=== PATIENT | female | born 2000 | race Caucasian/White ===

== ENCOUNTER 2019-08-27 15:50 | Emergency (ER) | payer SELFPAY ==
--- NOTE | 2019-08-27 16:07 | ED ---
Psychiatric Complaint - HPI Summary HPI Summary: This patient is a 19 year old female presenting to [facility] with a chief complaint of thoughts of harming herself. She arrived from therapy and she was supposed to go home for winter break when she states she experienced a lot of anxiety and fear of harming herself, so she came here. She has a Hx of eating disorder. She states she averages about 500 calories a day. She states she spends a lot of time working out and constantly weighing herself. She states she cuts and denies SI. - History Of Current Complaint Time Seen by Provider: 08/27/19 15:59 Hx Obtained From: Patient Onset/Duration: Lasting Minutes Character: Anxious Has Suicidal: Denies: Thoughts - Allergies/Home Medications Allergies/Adverse Reactions: Allergies Allergy/AdvReac Type Severity Reaction Status Date / Time olanzapine [From Zyprexa] Allergy Unknown Verified 08/27/19 16:14 Reaction Details risperidone [From Risperdal] Allergy Unknown Verified 08/27/19 16:14 Reaction Details Home Medications: Home Medications Modafinil TAB* [Provigil TAB*] 100 mg PO DAILY 08/27/19 [History Confirmed 08/27] PMH/Surg Hx/FS Hx/Imm Hx Cardiovascular History: Denies: Hx Coronary Artery Disease Psychiatric History: Reports: Hx Eating Disorder - Family History Known Family History: Negative: Seizure Disorder - Social History Occupation: Student Lives: Dormitory/Roommates Alcohol Use: None Hx Substance Use: No Review of Systems Negative: Fever Psychological: Other - Thoughts of self harm Positive: Anxious All Other Systems Reviewed And Are Negative: Yes Physical Exam - Summary Physical Exam Summary: Constitutional: Well-developed, Well-nourished, Alert. (-) Distressed Skin: Warm, Dry HENT: Normocephalic; Atraumatic Eyes: Conjunctiva normal Neck: Musculoskeletal ROM normal neck. (-) JVD, (-) Stridor, (-) Tracheal deviation Cardio: Rhythm regular, rate normal, Heart sounds normal; Intact distal pulses; The pedal pulses are 2+ and symmetric. Radial pulses are 2+ and symmetric. (-) Murmur Pulmonary/Chest wall: Effort normal. (-) Respiratory distress, (-) Wheezes, (-) Rales Abd: Soft, (-) tenderness, (-) Distension, (-) Guarding, (-) Rebound Musculoskeletal: (-) Edema Lymph: (-) Cervical adenopathy Neuro: Alert, Oriented x3 Psych: Appears anxious, denies SI. Triage Information Reviewed: Yes Vital Signs On Initial Exam: Temp Pulse Resp BP Pulse Ox 99.0 F 88 20 123/79 99 08/27/19 15:50 08/27/19 15:50 08/27/19 15:50 08/27/19 15:50 08/27/19 15:50 Vital Signs Reviewed: Yes Procedures - Sedation Patient Received Moderate/Deep Sedation with Procedure: No Diagnostics - Laboratory Result Diagrams: 08/27/19 16:21 08/27/19 16:21 Lab Statement: Any lab studies that have been ordered have been reviewed, and results considered in the medical decision making process. Course/Dx - Course Course Of Treatment: This patient is a 19 year old female presenting to [facility] with a chief complaint of thoughts of harming herself. Patient cleared for [facility]. [facility] discharged the patient with a diagnosis of anorexia, per Dr. Griffin, Psychiatry. - Differential Dx/Clinical Impression Provider Diagnosis: Anorexia Discharge ED - Sign-Out/Discharge Documenting (check all that apply): Patient Departure - Discharge, per [facility] - Discharge Plan Condition: Stable - Attestation Statements Document Initiated by Scribe: Yes Documenting Scribe: Ramon Holland Provider For Whom Scribe is Documenting (Include Credential): Crow Sadler DO Scribe Attestation: Ramon Burch, scribed for Crow Sadler DO on 08/27/19 at 1950. Status of Scribe Document: Ready
[2019-08-27 16:26] LABS: ABS Lymphocytes 1.1 10^3/ul (1.0-4.8); ABS Monocytes 0.3 10^3/ul (0-0.8); ABS Neutrophils 2.1 10^3/ul (1.5-7.7); Eosinophil % 0.5 %; Hematocrit 37 % (35-47); Hemoglobin 12.3 g/dL (12.0-16.0); Lymphocyte % 31.2 %; Mean Corpuscular HGB Conc 34 g/dL (31-36); Mean Corpuscular Hemoglobin 29 pg (27-31); Mean Corpuscular Volume 85 fL (80-97); Mean Platelet Volume 8.1 fL (7.4-10.4); Platelet Count 305 10^3/uL (150-450); Red Blood Count 4.31 10^6 /uL (3.70-4.87); Red Cell Distribution Width 14 % (10-15); White Blood Count 3.5 10^3/uL (3.5-10.8)
[2019-08-27 16:34] LABS: Urine Appearance Clear; Urine Bilirubin Negative (Negative); Urine Blood Negative (Negative); Urine Color Straw; Urine Glucose Negative (Negative); Urine Ketones Negative (Negative); Urine Nitrite Negative (Negative); Urine Protein Negative (Negative); Urine Specific Gravity 1.005 (1.010-1.030); Urine Urobilinogen Negative (Negative)
[2019-08-27 16:42] LABS: ALT 10 U/L (7-52); AST 15 U/L (13-39); Albumin/Globulin Ratio 1.9 (1-3); Alkaline Phosphatase 50 U/L (34-104); Anion Gap 6 mmol/L (2-11); BUN/Creatinine Ratio 15.7 (8-20); Blood Urea Nitrogen 11 mg/dL (6-24); CO2 Carbon Dioxide 28 mmol/L (22-32); Calcium 9.5 mg/dL (8.6-10.3); Chloride 104 mmol/L (101-111); EGFR African American 129.1 (>60); EGFR Non-African American 106.7 (>60); Globulin 2.6 g/dL (2-4); Glucose 91 mg/dL (70-100); Potassium 3.2 mmol/L (3.5-5.0); Sodium 138 mmol/L (135-145); Total Protein 7.6 g/dL (6.4-8.9)
[2019-08-27 16:45] LABS: Urine Benzodiazepine Screen None Detected (None Detect); Urine Opiates Screen None Detected (None Detect)
[2019-08-27] MEDS ORDERED: Potassium Chlor TAB* 20 MEQ TAB.ER PO ONE (16:52)
[2019-08-27 16:57] LABS: Acetaminophen < 15 mcg/mL; Alcohol < 10 mg/dL (<10); Salicylate < 2.50 mg/dL (<30)
[2019-08-27 17:20] LABS: TSH (Thyroid Stimulating Horm) 0.94 mcIU/mL (0.34-5.60)
[2019-08-27 20:32] VITALS: BP 105/67
== END 2019-08-27 21:00 | disposition home or self-care (01) ==
LOC: ED 15:50
DX: R63.0 Anorexia (principal); F41.9 Anxiety disorder, unspecified; Z79.899 Other long term (current) drug therapy
CPT/HCPCS: 36415; 80053; 80307; 80320; 80329; 81003; 84443; 85025; 99284; A9270-GY; G0480